=== PATIENT | male | born 1960 | race Caucasian/White ===

== ENCOUNTER → 2024-04-28 08:25 | Outpatient (REF) | payer SELFPAY | LOC: HWRAD 08:25 | PROVIDERS: ATTENDING PHYSICIAN Nurse Practitioner Family | DX: R55 Syncope and collapse (principal); R93.1 Abnormal findings on diagnostic imaging of heart and coronary circulation; I25.10 Atherosclerotic heart disease of native coronary artery without angina pectoris; E78.2 Mixed hyperlipidemia; I48.0 Paroxysmal atrial fibrillation | CPT/HCPCS: 75571 ==

== ENCOUNTER → 2025-04-23 07:56 | Outpatient (REF) | payer BC, SELFPAY | LOC: HWRAD 07:56 | PROVIDERS: ATTENDING PHYSICIAN Nurse Practitioner Family | DX: Z87.891 Personal history of nicotine dependence (principal) | CPT/HCPCS: 71271 ==